=== PATIENT | female | born 1970 | race Caucasian/White ===

== ENCOUNTER → 2016-11-18 | Outpatient (CLI) | payer MEDICAID ==
[~2016-11-18] MED LIST: ATORVASTATIN CA80 MG PO; CARAFATE1 GM PO; ESTRADIOL1 M1 PO; HYDROCODONE-APA1 TA1 PO; IBUPROFEN 600M600 MG PO; KLONOPIN0.5 M1 PO; LIPITOR20 MG PO; LISINOPRIL 10MG10 MG PO; LISINOPRIL10 MG PO; METFORMIN 500M500 M1 PO; MOTRIN 600MG.600 MG PO; NICODERM C21 MG/24 H TD; PANTOPRAZOLE SO40 M1 PO; PRILOSEC20 M1 PO
[2016-11-18 10:51] LABS: BUN 11 mg/dL (7-18)
[2016-11-18 10:52] LABS: GFR (ESTIMATED) 132 ML/MIN (59-)
--- NOTE | 2016-11-20 08:57 | RADIOLOGY REPORT PS360 ---
CT ABD PELVIS W/ CONTRAST CLINICAL INDICATION: RLQ PAIN SWELLING, MASS ORDERING PHYSICIAN: RAFAEL NUNEZ APRN PATIENT AGE: 46 years COMPARISON: 12/17/2015 TECHNIQUE: Axial images obtained with sagittal and coronal reformats. PROCEDURE: Oral Contrast: Redicat IV Contrast: 75 mL [id number]. FINDINGS: No acute finding of the lower chest. There is a 17 mm area of decreased attenuation involving the posterior aspect of the medial segment of the left hepatic lobe and may be due to an area of focal fatty infiltration probably unchanged from 12/17/2015 taken into account the difference in technique/enhancement. There has been prior cholecystectomy. No biliary dilatation. The spleen, adrenal glands, and pancreas are unremarkable. There is ectasia of the renal pelvicalyceal system as previously noted not significantly changed. There is a tiny umbilical hernia containing fat. Unremarkable appendix. No evidence of diverticulitis. There is a small medium-sized hernia arising just lateral to the lateral margin of the rectus abdominis inferiorly. This is slightly higher than where one would expect a inguinal hernia and may actually represent a spigelian-type hernia. The orifice of this hernia is approximately 3 cm in width. This does contain small bowel. NO bowel obstruction or incarceration or strangulation suspected. There is a small left inguinal hernia containing fat. There has been prior hysterectomy. No focal inflammatory change, intestinal obstruction, or free air. No acute bony anomalies. IMPRESSION: 1. Right inferior spigelian hernia containing small bowel without obstruction. 2. Small left inguinal hernia. 3. Probable fatty infiltration of the left hepatic lobe
== END ==
LOC: RAD 10:30
PROVIDERS: Nurse Practitioner Family
DX: R19.03 Right lower quadrant abdominal swelling, mass and lump (principal); Z12.31 Encounter for screening mammogram for malignant neoplasm of breast
CPT/HCPCS: Q9967